=== PATIENT | male | born 1985 | race Two or more races ===

== ENCOUNTER 2024-11-15 01:26 | Emergency (ER) | payer BC ==
[2024-11-15 01:37] VITALS: BP 132/95; PULSE 85; RESP 16; TEMP 98.1; BMI 21.0
== END 2024-11-15 02:14 | disposition home or self-care (01) ==
LOC: FER 01:26
DX: F41.9 Anxiety disorder, unspecified (principal); R07.89 Other chest pain
CPT/HCPCS: 99283-25